=== PATIENT | female | born 1945 | race Two or more races ===

== ENCOUNTER 2018-08-20 08:52 | Day surgery (SDC) | payer MEDICARE, MEDICAID ==
[2018-08-20] VITALS (8 sets, daily range): BP systolic 113–146; BP diastolic 63–84
[~2018-08-20] VITALS: Ht 167.6 cm; Wt 81.6 kg
[~2018-08-20 08:52] MED LIST: DULERA 100 MCG/13 GM IH; VITAMIN B122500 MCG PO; VITAMIN C1000 M2 PO
[2018-08-20] MEDS ORDERED: Propofol 200mg/20ml IV ONE (09:30)
[2018-08-20] MEDS ORDERED: Midazolam 2mg/2ml Inj ONE (09:30)
[2018-08-20] MEDS ORDERED: LR 1000ml ONE (09:30)
--- NOTE | 2018-08-20 09:32 | Anethesia Preoperative Eval ---
Anesthesia Pre-op PMH/ROS General Date of Evaluation: Aug 20, 2018 Time of Evaluation: 09:29 Anesthesiologist: Dustin ASA Score: ASA 1 Mallampati Score Class I : Soft palate, uvula, fauces, pillars visible Class II: Soft palate, uvula, fauces visible Class III: Soft palate, base of uvula visible Class IV: Only hard plate visible Mallampati Classification: Class II Surgeon: Jenna Diagnosis: colon screening Surgical Procedure: colonoscopy Anesthesia History: none Family History: no anesthesia problems Allergies: Coded Allergies: ACETAMINOPHEN (Verified Adverse Reaction, Unknown, 05/11/15) NAUSEA, DIZZINESS HYDROCODONE (Verified Adverse Reaction, Unknown, 05/11/15) NAUSEA, DIZZINESS Medications: see eMAR Patient NPO?: Yes NPO Date: Aug 19, 2018 Past Medical History Cardiovascular: Reports: other - hyperlipids Pulmonary: Reports: asthma, other - bronchitis, sinus problem Gastrointestinal/Genitourinary: Reports: GERD, other - bloating, uterine CA Neurologic/Psychiatric: Reports: depression/anxiety Endocrine: Denies: DM, hypothyroidism, steroids, other HEENT: Denies: cataract (L), cataract (R), glaucoma, KOI (L), KOI (R), other Hematology/Immune: Denies: anemia, DVT, bleeding disorder, other Musculoskeletal/Integumentary: Reports: OA, other - back pain PSxH Narrative: colon resection, umbilical hernia, chemo therapy Anesthesia Pre-op Phys. Exam Physician Exam Constitutional: NAD Neurologic: CN 2-12 intact Cardiovascular: RRR Respiratory: CTA Gastrointestinal: S/NT/ND Airway Exam Mallampati Score: Class II MO: full ROM: full Teeth: intact Dentures: no upper, no lower Anesthesia Pre-op A/P Risk Assessment & Plan Assessment: A&Ox4 Plan: MAC Status Change Before Surgery: No Pre-Antibiotics Given Within 1 Hr of Incision: No Chio Chan CRNA Aug 20, 2018 09:32
--- NOTE | 2018-08-20 09:33 | 48 Hour Post Anesthesia Eval ---
Post Anesthesia Evaluation Procedure: colonoscopy Date of Evaluation: Aug 20, 2018 Time of Evaluation: 10:39 Blood Pressure Systolic: 127 0: 81 Pulse Rate: 61 Respiratory Rate: 16 Temperature (Fahrenheit): 97.2 O2 Sat by Pulse Oximetry: 100 Airway: patent Nausea: No Vomiting: No Pain Intensity: 0 Hydration Status: adequate Cardiopulmonary Status: WNL Mental Status/LOC: patient returned to baseline Post-Anesthesia Complications: none Follow-up care needed: patient intructions given Chio Chan CRNA Aug 20, 2018 09:33
--- NOTE | 2018-08-20 09:33 | Immediate Post-Op Evaluation ---
Immediate Post-Op Evalulation Immediate Post-Op Evalulation Procedure: colonoscopy Date of Evaluation: Aug 20, 2018 Time of Evaluation: 10:20 IV Fluids: LR 300ml Blood Products: 0 Estimated Blood Loss: 0 Urinary Output: 0 Blood Pressure Systolic: 120 Blood Pressure Diastolic: 82 Pulse Rate: 68 Respiratory Rate: 16 O2 Sat by Pulse Oximetry: 100 Temperature (Fahrenheit): 97.2 Pain Score (1-10): 0 Nausea: No Vomiting: No Complications none Patient Status: awake, reacts Hydration Status: adequate Given Within 1 Hr of Incision: Chio Medrano CRNA Aug 20, 2018 09:33
--- NOTE | 2018-08-20 09:34 | Short Stay Surgery H&P ---
History of Present Illness History of Present Illness Chief Complaint History of colon cancer now for screening HPI Bety Garcia is a 72 year old female who was admitted on for Colon Screening as she has had colon cancer Patient History Allergies: Coded Allergies: ACETAMINOPHEN (Verified Adverse Reaction, Unknown, 05/11/15) NAUSEA, DIZZINESS HYDROCODONE (Verified Adverse Reaction, Unknown, 05/11/15) NAUSEA, DIZZINESS Medication History Scheduled Ascorbic Acid (Vitamin C), 1,000 MG PO DA, (Reported) Miscellaneous Medications Cyanocobalamin (Vitamin B-12) (Vitamin B12), 2,500 MCG PO, (Reported) Mometasone/Formoterol (Dulera 100 Mcg/5 Mcg Inhaler), 13 GM IH, (Reported) Review of Systems Cardiovascular: Reports: no symptoms Respiratory: Reports: asthma Skeletal: Reports: no symptoms Gastrointestinal: Reports: other Genitourinary: Reports: no symptoms Neurologic: Reports: no symptoms Endocrine: Reports: no symptoms Hematologic: Reports: no symptoms Physical Exam Skin: normal HENT: normal Heart: normal Lungs: normal Abdomen: normal Extremities: normal Genitourinary: normal Plan Plan of Care colonoscopy Preop Interventions None Summary of Findings See the reports Attestation Are the patient's medical conditions optimized for surgery? Attestation Response: yes Ayana West MD Aug 20, 2018 09:34
--- NOTE | 2018-08-20 09:35 | Pre-Procedure Note/Attestation ---
Pre-Procedure Note/Attestation Complete Prior to Procedure Planned Procedure: left Procedure Narrative: examination of the colon via colonoscopy Indications for Procedure Pre-Operative Diagnosis: R/O recurrent colon CA Attestation I attest that I discussed the nature of the procedure; its benefits; risks and complications; and alternatives (and the risks and benefits of such alternatives ), prior to the procedure, with the patient (or the patient's legal dermatology sales representative). I attest that, if there was a reasonable possibility of needing a blood transfusion, the patient (or the patient's legal dermatology sales representative) was given the [facility] standardized written summary, pursuant to the [place] Blood Safety Act ([place] Health and Safety Code # 1645, as amended). I attest that I re-evaluated the patient just prior to the surgery and that there has been no change in the patient's H&P, except as documented below: Ayana West MD Aug 20, 2018 09:35
[2018-08-20] MEDS ORDERED: cholesterol pill PO (09:38)
[2018-08-20] MEDS ORDERED: [UNRECOGNIZED DRUG - REMARK] PO (09:38)
--- NOTE | 2018-08-20 10:13 | Discharge Instructions ---
Discharge Instructions Discharge Instructions Follow up with: Visit the doctor after 2 weeks in the office For Congestive Heart Failure Reminder Report to your physician any weight gain of 5 pounds or more in one week. Ayana West MD Aug 20, 2018 10:13
--- NOTE | 2018-08-20 10:13 | Endoscopy Procedure Note ---
Endoscopy Procedure Note General Indication for Procedure: History of colon cancer/screening Procedures Performed: colonoscopy - Minimal internal hemorrhoids with high redundancy of colon; otherwise normal total colon. Specimen: none Pt Tolerated Procedure Well: Yes Estimated Blood Loss: none Anesthesia Anesthesiologist: Ms. Dustin GARCIA Anesthesia: moderate sedation Medications Medication Given: see anesthesia record Inserted Devices Implant(s) used?: No Quality Quality of Bowel Preparation: Fair Did scope reach the cecum?: Yes Was there any complications?: No GI Core Measures 50 yrs or older w/o bx or poly: Yes 10yrs. F/U not recommended: Yes 10 yrs. F/U needed: Yes <3yrs. since last colonoscopy: No Med reason:<3 yrs.: System Reason:<3 yrs.: Last colonoscopy >= to 3yrs: No Ayana West MD Aug 20, 2018 10:13
--- NOTE | 2018-08-20 16:45 | Operative Note - Dictated ---
DATE OF OPERATION: 08/20/2018 SURGEON: Ayana West M.D. PROCEDURE: Total colonoscopy/screening colonoscopy. PREOPERATIVE DIAGNOSIS: History of colon cancer and uterine cancer, rule out recurrence colon cancer, question Romero syndrome. POSTOPERATIVE DIAGNOSIS: Minimal internal hemorrhoid otherwise normal total colonoscopy. MEDICATION USED: Per Dr. Dustin CRNA. INSTRUMENT: GIF Olympus video colonoscope. DESCRIPTION OF PROCEDURE: The patient after arriving at endoscopy unit, was told about risks and benefits of the procedure that she accepted and signed informed consent. At this time, she was put in the left lateral decubitus position. After adequate IV sedation, the scope was gently passed through the anal area which revealed evidence of a small hemorrhoidal tag. There was also evidence of minimal internal hemorrhoid as the scope was also retroflexed in the distal rectum. The hemorrhoids were not friable. The rest of the rectum looked quite normal. At this time, the scope was gradually passed through a very redundant colon, which includes splenic flexure. From there, it was guided into the transverse and finally right colon all the way to the base of the cecum area as the appendiceal opening was also visualized. All these areas remained to be completely normal. No evidence of polyps, tumors, inflammatory process, ulceration, stricture, colitis, etc. was found. The colon cleanup was fair as there was liquidy stool along the colon. At this point after reaching to the cecum, within 7 minutes, the scope was gradually pulled out and the re-examination did not reveal any other pathologies. The patient tolerated the procedure well and left the endoscopy room in a good condition. Ayana West M.D. DR: CASIMIRO JOB#: [id number] CC:
== END 2018-08-20 12:50 | disposition home or self-care (01) ==
LOC: GAS 08:52
DX: Z12.11 Encounter for screening for malignant neoplasm of colon (principal); Z85.038 Personal history of other malignant neoplasm of large intestine; J45.909 Unspecified asthma, uncomplicated; E78.5 Hyperlipidemia, unspecified; K21.9 Gastro-esophageal reflux disease without esophagitis; F32.9 Major depressive disorder, single episode, unspecified; F41.9 Anxiety disorder, unspecified; M19.90 Unspecified osteoarthritis, unspecified site; Z90.49 Acquired absence of other specified parts of digestive tract; Z88.6 Allergy status to analgesic agent; Z88.5 Allergy status to narcotic agent; Z85.42 Personal history of malignant neoplasm of other parts of uterus
CPT/HCPCS: G0105; J2250; J2704; 94003; 94150